=== PATIENT | female | born 1990 | race Native Hawaiian/Other Pacific Islander ===

== ENCOUNTER → 2020-05-02 11:10 | Outpatient (CLI) | payer OTHER, SELFPAY ==
--- NOTE | 2020-05-02 | DI.RAD.S_ITS ---
PROCEDURE: FL BARIUM SWALLOW INDICATIONS: Other somatoform disorders COMPARISON: None. FINDINGS: Function: There is mildly decreased esophageal peristalsis. No elicited gastroesophageal reflux. There is normal transit of a calibrated barium tablet through the esophagus into the stomach. Morphology: Air-contrast images demonstrate normal mucosal morphology. Single contrast views show no esophageal strictures, extrinsic mass effects, or diverticula. Limited images of the stomach demonstrate normal appearance. IMPRESSION: Mild esophageal dysmotility Dictated by: Dominic Rose M.D. on 05/02/2020 at 11:47 Approved by: Dominic Rose M.D. on 05/02/2020 at 11:47
== END ==
PROVIDERS: Referring Provider Physician Assistant; Visit Provider Physician Assistant
DX: F45.8 Other somatoform disorders (principal); K22.4 Dyskinesia of esophagus
CPT/HCPCS: 74220